=== PATIENT | male | born 1980 | race Caucasian/White ===

== ENCOUNTER 2022-07-01 19:16 | Inpatient (IN) | payer SELFPAY ==
[2022-07-01] VITALS (9 sets, daily range): BP systolic 155–166; BP diastolic 106–119; PULSE 62–88; RESP 16–22; TEMP 36.6–36.7; O2SAT 94–100; BMI 28.9
[2022-07-01] MEDS: fentaNYL 50 mcg/mL INJ 2mL IVP (19:42)
[2022-07-01] MEDS: ondansetron 2 mg/ML SDV 2 mL 4 MG IVP (19:42)
--- NOTE | 2022-07-01 19:58 | ED_ITS ---
HPI - Back Pain/Injury General: Chief Complaint: Back Pain/Injury Stated Complaint: Lower Back Pain\Fever Time Seen by Provider: 07/01/22 19:40 Source: patient Mode of arrival: ambulatory Limitations: no limitations History of Present Illness: 41-year-old male states been having right flank pain started this afternoon is gotten much worse suddenly states it radiates into his groin. He states the pain is currently a 9 out of 10 he has had some nausea denies any vomiting he denies any worsening proving factors no history of abdominal surgeries or kidney stone. Associated symptoms: Deny abdominal pain, chills, dysuria, fever(s), nausea or vomiting Review of Systems Const: Denies: fever(s), chills, body aches or change in appetite Eyes: Denies: blurry vision or eye discomfort ENMT: Denies: throat pain or dental pain Card: Denies: chest pain Resp: Denies: dyspnea GI: Denies: abdominal pain, nausea, vomiting or diarrhea : Denies: dysuria Musc: Denies: neck pain or back pain Skin/Breast: Denies: rash Neuro: Denies: headache(s) Psych: Denies: depression Santo/Lymph: Denies: easy bruising All/Imm: Denies: urticaria PFSH ED PFSH: Medical History (Updated 07/01/22 @ 22:41 by Nadiya Encarnacion MD) No pertinent past medical history Social History Substance/Drug Use: never Physical Exam Const: COMMON NORMALS: no acute distress, patient oriented x3 and healthy appearing HENMT: COMMON NORMALS: normocephalic and atraumatic HEAD & SCALP: normocephalic and atraumatic Eye: COMMON NORMALS: Equal, round and reactive pupils present and EOMs intact bilaterally PUPIL: Yes Equal, round and reactive pupils present Neck/C-Spine: COMMON NORMALS: full ROM and supple Chest: COMMONS NORMALS: normal inspection of the chest and normal palpation of entire chest wall Resp: COMMON NORMALS: normal respiratory effort, No retractions, No use of accessory muscles and clear to auscultation bilaterally AUSCULTATION: clear to auscultation bilaterally Cardio: COMMON NORMALS: regular rate, regular rhythm and No murmurs present (Cardio) RATE: regular rate RHYTHM: regular rhythm GI: COMMON NORMALS: Normal to inspection, nondistended, normoactive bowel sounds present, Soft to palpation, non-tender and no masses PALPATION: Yes Soft to palpation Extremity: COMMON NORMALS: normal to inspection and full ROM Neuro: COMMON NORMALS: patient oriented x3, moves all extremities and no focal motor deficits Psych: COMMON NORMALS: mental status grossly normal, Normal thought process present and cooperative THOUGHT PROCESS: Normal thought process present Skin: COMMON NORMALS: no rashes or lesions noted and no wounds GENERAL SKIN EXAM: no rashes or lesions noted Course Vital Signs: Vital signs: Vital Signs Temperature 98.0 F 07/01/22 19:20 Pulse Rate 70 07/01/22 21:46 Respiratory Rate 16 07/01/22 21:49 Blood Pressure 155/106 07/01/22 21:46 Pulse Oximetry 94 07/01/22 21:46 Oxygen Delivery Me thod 07/01/22 21:46 MDM - Back Pain/Injury Medical Decision Making Patient presents here with abdominal pain CT shows pancreatitis his lipase is elevated spoke to hospitalist Dr. Robb and will admit at this time. Labs : 07/01/22 21:44 07/01/22 21:44 Radiology Impressions Abdomen/Pelvis CT 07/01/22 20:54 IMPRESSION: 1. Inflammation of the duodenum and pancreatic head. This could represent acute pancreatitis and/or infectious versus inflammatory duodenitis. Peptic ulcer disease is not excluded. Clinical correlation recommended. 2. Fatty liver. Laboratory Results WBC 6.9 10^3/uL (4.0-10.0) 07/01/22 21:44 RBC 4.67 10^6/uL (4.1-5.3) 07/01/22 21:44 Hgb 15.7 g/dL (11.7-16.6) 07/01/22 21:44 Hct 44.3 % (42.0-52.0) 07/01/22 21:44 MCV 94.9 fl (80-94) H 07/01/22 21:44 MCH 33.6 pg (28.0-34.0) 07/01/22 21:44 MCHC 35.4 g/dL (30.0-36.0) 07/01/22 21:44 RDW 11.3 % (12.1-15.1) L 07/01/22 21:44 Plt Count 195 10^3/cmm (130-400) 07/01/22 21:44 MPV 9.6 fL (7.4-10.4) 07/01/22 21:44 Neut % (Auto) 65.6 % 07/01/22 21:44 Lymph % (Auto) 25.3 % 07/01/22 21:44 [place] % (Auto) 7.7 % 07/01/22 21:44 Eos % (Auto) 0.4 % 07/01/22 21:44 Baso % (Auto) 0.6 % 07/01/22 21:44 Neut # (Auto) 4.51 10^3/uL (1.8-7.7) 07/01/22 21:44 Lymph # (Auto) 1.7 10^3/uL (0.8-4.8) 07/01/22 21:44 [place] # (Auto) 0.5 10^3/uL (0.2-0.9) 07/01/22 21:44 Eos # (Auto) 0.0 10^3/uL (0.0-0.8) 07/01/22 21:44 Baso # (Auto) 0.0 10^3/uL (0.0-0.1) 07/01/22 21:44 Nucleated RBC % (auto) 0 % 07/01/22 21:44 Nucleated RBCs # 0.0 /100WBC 07/01/22 21:44 Sodium 132 mmol/L (136-145) L 07/01/22 21:44 Potassium 3.7 mmol/L (3.5-5.1) 07/01/22 21:44 Chloride 95 mmol/L (98-107) L 07/01/22 21:44 Carbon Dioxide 22 mmol/L (22-29) 07/01/22 21:44 Anion Gap 18.7 (5-19) 07/01/22 21:44 BUN 8 mg/dL (6-20) 07/01/22 21:44 Creatinine 0.7 mg/dL (0.7-1.2) 07/01/22 21:44 GFR Calculation 125.5 mL/min (90-130) 07/01/22 21:44 Glucose 104 mg/dL (65-115) 07/01/22 21:44 Calculated Osmolality 273 mOsm/kg (285-295) L 07/01/22 21:44 Calcium 9.5 mg/dL (8.5-10.5) 07/01/22 21:44 Total Bilirubin 0.8 mg/dL (0.15-1.2) 07/01/22 21:44 AST 60 U/L (0-40) H 07/01/22 21:44 ALT 69 U/L (0-41) H 07/01/22 21:44 Alkaline Phosphatase 84 U/L (40-130) 07/01/22 21:44 Total Protein 7.0 g/dL (6.6-8.7) 07/01/22:44 Albumin 4.3 g/dL (3.5-5.2) 07/01/22 21:44 Globulin 2.7 g/dL (1.3-4.6) 07/01/22 21:44 Lipase 441 U/L (13-60) H 07/01/22 21:44 Urine Color Yellow (Yellow) 07/01/22 20:05 Urine Appearance Clear (CLEAR) 07/01/22 20:05 Urine pH 8 (5-7) H 07/01/22 20:05 Ur Specific [place] 1.015 (1.005-1.030) 07/01/22 20:05 Urine Protein Neg (Negative) 07/01/22 20:05 Urine Glucose (UA) Norm (Normal) 07/01/22 20:05 Urine Ketones 1+ (Negative) H 07/01/22 20:05 Urine Blood Neg (Negative) 07/01/22 20:05 Urine Nitrate Negative (Negative) 07/01/22 20:05 Urine Bilirubin Neg (Negative) 07/01/22 20:05 Prot Sulfosalicylic Acd Negative (Negative) 07/01/22 20:05 Urine Urobilinogen Norm mg/dL (Negative) 07/01/22 20:05 Ur Leukocyte Esterase Negative (Negative) 07/01/22 20:05 Discharge Plan Discharge Patient Disposition: Admitted As Inpatient Clinical Impression: Acute pancreatitis Coding Level of Care Code ED Home Office Representative for Chg Fwd Exam Comprehensive
--- NOTE | 2022-07-01 20:44 | PC.NURSE ---
DONALD Stevens pulled 1mg Dilaudid per order from pyxis. Order was for 0.5mg IVP. 0.5 mg Dilaudid waisted by DONALD Stevens with this RN as witness. Unable to waste in pyxis secondary to downtime.
--- NOTE | 2022-07-01 20:46 | PC.NURSE ---
Secondary to downtime, 0.5mg IV dilaudid given IV push, per MD order. Verified with DONALD Stevens. Also verified that pt is not allergic to any med. SHANNON Jaramillo verified as well.
--- NOTE | 2022-07-01 20:54 | CTR_ITS ---
PROCEDURE INFORMATION: Exam: CT Abdomen And Pelvis Without Contrast Exam date and time: 07/01/2022 8:48 PM Age: 41 years old Clinical indication: Abdominal pain; Localized; Right; Patient HX: RT flank and back pain. ; Additional info: Abd pain TECHNIQUE: Imaging protocol: Computed tomography of the abdomen and pelvis without contrast. Radiation optimization: All CT scans at this facility use at least one of these dose optimization techniques: automated exposure control; mA and/or kV adjustment per patient size (includes targeted exams where dose is matched to clinical indication); or iterative reconstruction. COMPARISON: No relevant prior studies available. RADIATION DOSE METRICS: Total DLP (mGy-cm): 701.29 FINDINGS: Liver: Hepatomegaly with diffuse fatty infiltration. Gallbladder and bile ducts: Partially contracted gallbladder with possible sludge. The bile ducts are normal. Pancreas: Mild fullness of the pancreatic head with mild adjacent fat stranding. The body and tail are normal. Spleen: Normal. No splenomegaly. Adrenal glands: Normal. No mass. Kidneys and ureters: Normal. No hydronephrosis. Stomach and bowel: The stomach is unremarkable. Mild wall thickening in the 1st through 4th portions of the duodenum with adjacent fat stranding. Appendix: The appendix is visualized and is normal. Intraperitoneal space: Trace amount fluid in Espinoza's space. No free peritoneal air. Vasculature: Unremarkable. No abdominal aortic aneurysm. Lymph nodes: Unremarkable. No enlarged lymph nodes. Urinary bladder: Unremarkable as visualized. Reproductive: Unremarkable as visualized. Bones/joints: Chronic bilateral L5 pars fractures with grade 1 anterolisthesis. No acute fracture. Soft tissues: Fat containing right inguinal hernia. Tiny fat containing umbilical hernia. CT/CT kidney stone [id number] IMPRESSION: 1. Inflammation of the duodenum and pancreatic head. This could represent acute pancreatitis and/or infectious versus inflammatory duodenitis. Peptic ulcer disease is not excluded. Clinical correlation recommended. 2. Fatty liver.
[2022-07-01] MEDS: HYDROmorphone 1 mg/mL INJ 1 mL 0.5 MG IVP (21:37)
[2022-07-01 21:47] LABS: Add Urine Microscopic? NO; Charge for UA Resulting for Rev
[2022-07-01] MEDS: HYDROmorphone 1 mg/mL INJ 1 mL IVP (21:49)
[2022-07-01 21:50] LABS: Basophils % 0.6 %; Eosinophils % 0.4 %; Hematocrit 44.3 % (42.0-52.0); Hemoglobin 15.7 g/dL (11.7-16.6); Lymphocytes # 1.7 10^3/uL (0.8-4.8); Lymphocytes % 25.3 %; Mean Corpuscular HGB Conc 35.4 g/dL (30.0-36.0); Mean Corpuscular Hemoglobin 33.6 pg (28.0-34.0); Mean Corpuscular Volume 94.9 fl (80-94); Mean Platelet Volume 9.6 fL (7.4-10.4); Monocytes # 0.5 10^3/uL (0.2-0.9); Monocytes % 7.7 %; Neutrophils # 4.51 10^3/uL (1.8-7.7); Neutrophils % 65.6 %; Nucleated Red Blood Cells % 0 %; Platelet Count 195 10^3/cmm (130-400); Red Blood Count 4.67 10^6/uL (4.1-5.3); Red Cell Distribution Width 11.3 % (12.1-15.1); White Blood Count 6.9 10^3/uL (4.0-10.0)
[2022-07-01 21:55] LABS: Blood Urine Neg (Negative); Glucose Urine UA Norm (Normal); Ketones Urine 1+ (Negative); Protein Urine Neg (Negative); Specific Gravity, Urine 1.015 (1.005-1.030); Urine Appearance Clear (CLEAR); Urine Color Yellow (Yellow); pH Urine 8 (5-7)
[2022-07-01 21:56] LABS: Bilirubin Urine Neg (Negative); Leukocyte Esterase Urine Negative (Negative); Nitrate Urine Negative (Negative); Sulfosalicylic Acid Urine Negative (Negative); Urobilinogen Urine Norm (Negative)
[2022-07-01 22:12] LABS: Alanine Aminotransferase 69 U/L (0-41); Albumin Level 4.3 g/dL (3.5-5.2); Alkaline Phosphatase 84 U/L (40-130); Aspartate Amino Transferase 60 U/L (0-40); Blood Urea Nitrogen 8 mg/dL (6-20); Calcium 9.5 mg/dL (8.5-10.5); Carbon Dioxide 22 mmol/L (22-29); Chloride 95 mmol/L (98-107); Globulin 2.7 g/dL (1.3-4.6); Glomerular Filtration Rate 125.5 mL/min (90-130); Glucose 104 mg/dL (65-115); Osmolality Calculated 273 mOsm/kg (285-295); Sodium 132 mmol/L (136-145); Total Bilirubin 0.8 mg/dL (0.15-1.2)
[2022-07-01 22:21] LABS: Lipase 441 U/L (13-60)
[2022-07-01 22:23] LABS: Anion Gap 18.7 (5-19); Potassium 3.7 mmol/L (3.5-5.1)
[2022-07-01] MEDS: sodium chloride 0.9% 1,000 ML 999 ML IV (22:41)
--- NOTE | 2022-07-01 23:35 | P.HP_ITS ---
Providers/Chief Complaint Admitting Physician: Lashae Robb MD Chief Complaint: Lower Back Pain\Fever History of Present Illness Adráin Morocho is a 41 year old male presenting to the emergency room for complaints of abdominal pain, nausea and vomiting that started suddenly this afternoon. States that the pain is radiating down to the right side of his abdomen. Denies any changes in bowel habits. Denies any melena or GI bleeding. CT abdomen revealed acute pancreatitis. Elevated lipase. No recent history of binge alcohol drinking. Review of Systems General: Reports: 10 or more systems reviewed and unremarkable except in HPI and below Const: Denies: fever(s), chills or body aches Eyes: Denies: change in vision, blurry vision or photophobia ENMT: Reports: hoarseness; Denies: throat pain, enlarged tonsils, odynophagia or nasal congestion Card: Denies: chest pain, palpitations, irregular heart rhythm, edema, swelling of feet/ankles, lightheadedness, pre-syncope, dyspnea on exertion or orthopnea Resp: Denies: dyspnea, productive cough, non-productive cough, wheezing, stridor, pain on inspiration, change in phlegm color, hemoptysis or chest congestion GI: Denies: abdominal pain, nausea, vomiting, hematemesis, coffee ground emesis, dysphagia, heartburn, diarrhea, constipation, GI cramping, change in stool character, hematochezia or melena : Denies: flank pain, dysuria, urinary frequency, urinary urgency, urinary hesitancy or hematuria Musc: Denies: neck pain, back pain, extremity pain, joint swelling, joint warmth or deformity Neuro: Denies: headache(s), numbness in extremities, weakness in extremities, sensory changes, difficulty walking, frequent falls, dizziness, vertigo, behavioral changes, Slurred speech present or seizure-like activity Psych: Denies: anxiety, depression, suicidal ideation or homicidal ideation Endo: Denies: polyuria, polydipsia, tired all the time, cold intolerance or hot flashes Santo/Lymph: Denies: easy bruising or easy bleeding Medications/Allergies Home Medications Medication Instructions Recorded Confirmed Last Taken Type No Known Home Medications 07/01/22 07/01/22 Unknown History Allergies Allergy/AdvReac Type Severity Reaction Status Date / Time No Known Allergies Allergy Verified 07/01/22 23:16 PFSH Acute PFSH: Medical History No pertinent past medical history Social History Substance/Drug Use: never Vitals/I&O/Wt Last Vital Signs Temp 98 F 07/01/22 23:17 Pulse 70 07/01/22 23:17 Resp 16 07/01/22 23:17 BP 166/114 07/01/22 23:17 Pulse Ox 98 07/01/22 23:17 O2 Del Method 07/01/22 23:17 Weight last 48 hrs Weight 88.904 kg Physical Exam Narrative: General: No acute distress, AO x3 HEENT: PERRLA, pupils bilaterally equal and reactive, pallors not present Chest: Normal vesicular breath sounds, no added sounds, equal good air entry bilaterally CVS: S1-S2 regular, no murmurs, no tachycardia, no gallops, no rubs Abdomen: Soft, nontender, no organomegaly, bowel sounds present Neuro: No focal deficits, no facial deformity, AO x3, power 5/5 in all limbs Data : 07/02/22 04:05 07/02/22 04:05 A&P Assessment and plan (1) Acute pancreatitis: Admit to [facility] Overall impression that of acute pancreatitis. CT of the abdomen without any signs of necrotizing pancreatitis or pancreatic abscess. Noted mildly elevated AST and ALT without any elevated alkaline phosphatase. CT shows hepatomegaly with diffuse fatty infiltration, partially contracted gallbladder with possible sludge, normal bile ducts. Check triglyceride level. IV fluid D5 normal saline at 125 cc an hour. N.p.o. As needed morphine alternating with Toradol for pain management. As needed Zofran for symptomatic control of nausea. Monitor for clinical recovery with above interventions. Trend LFT Attestations Medical Necessity Statement*: Anticipate greater than 2 midnight admission for the management of acute pancreatitis. Coding Level of Care Code Acute Radiology Interventional Physician for Juan Luis Yancey Diagnoses Acute pancreatitis K85.90
[2022-07-01] MEDS: morphine 4 mg/mL SDV 1 mL 2 MG IVP (23:39)
[2022-07-01] MEDS: pantoprazole 40 mg SDV IVP (23:40)
[2022-07-01] MEDS: dextrose 5%-sod chloride 0.9% 1,000 ML 125 ML IV (23:40)
[2022-07-02] VITALS (7 sets, daily range): BP systolic 148–165; BP diastolic 99–111; PULSE 63–78; RESP 16–18; TEMP 36.7–36.8; O2SAT 94–98
[2022-07-02 00:14] LABS: Alcohol Level 10 mg/dL (0-10)
[2022-07-02 05:18] LABS: Basophils % 0.5 %; Eosinophils # 0.1 10^3/uL (0.0-0.8); Eosinophils % 0.8 %; Hematocrit 43.3 % (42.0-52.0); Hemoglobin 15.2 g/dL (11.7-16.6); Lymphocytes # 1.6 10^3/uL (0.8-4.8); Lymphocytes % 26.3 %; Mean Corpuscular HGB Conc 35.1 g/dL (30.0-36.0); Mean Corpuscular Hemoglobin 33.6 pg (28.0-34.0); Mean Corpuscular Volume 95.8 fl (80-94); Mean Platelet Volume 10.4 fL (7.4-10.4); Monocytes # 0.6 10^3/uL (0.2-0.9); Monocytes % 10.3 %; Neutrophils % 61.8 %; Nucleated Red Blood Cells % 0 %; Platelet Count 184 10^3/cmm (130-400); Red Blood Count 4.52 10^6/uL (4.1-5.3); Red Cell Distribution Width 11.3 % (12.1-15.1)
[2022-07-02 05:38] LABS: Alanine Aminotransferase 57 U/L (0-41); Alkaline Phosphatase 82 U/L (40-130); Anion Gap 14.7 (5-19); Aspartate Amino Transferase 43 U/L (0-40); Blood Urea Nitrogen 7 mg/dL (6-20); Calcium 9.2 mg/dL (8.5-10.5); Carbon Dioxide 25 mmol/L (22-29); Chloride 100 mmol/L (98-107); Globulin 2.6 g/dL (1.3-4.6); Glomerular Filtration Rate 107.6 mL/min (90-130); Glucose 119 mg/dL (65-115); Magnesium 1.9 mg/dL (1.7-2.3); Osmolality Calculated 281 mOsm/kg (285-295); Potassium 3.7 mmol/L (3.5-5.1); Sodium 136 mmol/L (136-145); Total Protein 6.6 g/dL (6.6-8.7)
[2022-07-02 07:15] LABS: Triglycerides 88 mg/dL (0-150)
[2022-07-02] MEDS: dextrose 5%-sod chloride 0.9% 1,000 ML 125 ML IV (08:15)
--- NOTE | 2022-07-02 09:49 | PM.DCS ---
Discharge Providers Date of Admission: 07/01/22 23:00 Date of Discharge: July 02, 2022 Attending Provider at Admission: Lashae Robb MD Attending Provider at Discharge: Fide Bahena MD Diagnoses at Discharge Discharge Diagnosis (1) Acute pancreatitis: Status: Acute Reason for Visit Reason for Visit: Lower Back Pain\Fever Hospital Course Hospital Course 41 male who drinks alcohol on occasional basis, drinks 2-3 beers a day occasionally, active smoker, present to the hospital for chief complaint of right flank pain radiating towards his back, initially he thought his symptoms were related to kidney stone but in the ER he was diagnosed with pancreatitis, his lipase above 400, triglyceride 88, he is nondiabetic, patient is stating that his mother of worsening of pancreatitis with sepsis he is not sure whether pancreatitis runs in the family, this is his first episode of pancreatitis. I did residential child care counselor him that in case of recurrent pancreatitis despite cessation of alcohol including nicotine he will need work-up for autoimmune pancreatitis. I have advance his diet which she is able to tolerate, his pain is well managed, he looks hydrated, I have advance his diet. We will discharge him on opioids. Physical Exam Narrative: Abdomen is nontender Abdomen is soft Bowel sound present Hyperactive bowel sounds Awake and alert Hydrated S1, S2 Currently on room air Discharge Data Studies Completed and Pending Completed Studies During Hospitalization Category Date Time Status CT kidney stone [id number] Stat Cat Scan 07/01/22 20:54 Completed Radiology Impressions Abdomen/Pelvis CT 07/01/22 20:54 IMPRESSION: 1. Inflammation of the duodenum and pancreatic head. This could represent acute pancreatitis and/or infectious versus inflammatory duodenitis. Peptic ulcer disease is not excluded. Clinical correlation recommended. 2. Fatty liver. Laboratory Results WBC 6.0 10^3/uL (4.0-10.0) 07/02/22 04:05 RBC 4.52 10^6/uL (4.1-5.3) 07/02/22 04:05 Hgb 15.2 g/dL (11.7-16.6) 07/02/22 04:05 Hct 43.3 % (42.0-52.0) 07/02/22 04:05 MCV 95.8 fl (80-94) H 07/02/22 04:05 MCH 33.6 pg (28.0-34.0) 07/02/22 04:05 MCHC 35.1 g/dL (30.0-36.0) 07/02/22 04:05 RDW 11.3 % (12.1-15.1) L 07/02/22 04:05 Plt Count 184 10^3/cmm (130-400) 07/02/22 04:05 MPV 10.4 fL (7.4-10.4) 07/02/22 04:05 Neut % (Auto) 61.8 % 07/02/22 04:05 Lymph % (Auto) 26.3 % 07/02/22 04:05 [place] % (Auto) 10.3 % 07/02/22 04:05 Eos % (Auto) 0.8 % 07/02/22 04:05 Baso % (Auto) 0.5 % 07/02/22 04:05 Neut # (Auto) 3.70 10^3/uL (1.8-7.7) 07/02/22 04:05 Lymph # (Auto) 1.6 10^3/uL (0.8-4.8) 07/02/22 04:05 [place] # (Auto) 0.6 10^3/uL (0.2-0.9) 07/02/22 04:05 Eos # (Auto) 0.1 10^3/uL (0.0-0.8) 07/02/22 04:05 Baso # (Auto) 0.0 10^3/uL (0.0-0.1) 07/02/22 04:05 Nucleated RBC % (auto) 0 % 07/02/22 04:05 Nucleated RBCs # 0.0 /100WBC 07/02/22 04:05 Sodium 136 mmol/L (136-145) 07/02/22 04:05 Potassium 3.7 mmol/L (3.5-5.1) 07/02/22 04:05 Chloride 100 mmol/L (98-107) 07/02/22 04:05 Carbon Dioxide 25 mmol/L (22-29) 07/02/22 04:05 Anion Gap 14.7 (5-19) 07/02/22 04:05 BUN 7 mg/dL (6-20) 07/02/22 04:05 Creatinine 0.8 mg/dL (0.7-1.2) 07/02/22 04:05 GFR Calculation 107.6 mL/min (90-130) 07/02/22 04:05 Glucose 119 mg/dL (65-115) H 07/02/22 04:05 Calculated Osmolality 281 mOsm/kg (285-295) L 07/02/22 04:05 Calcium 9.2 mg/dL (8.5-10.5) 07/02/22 04:05 Magnesium 1.9 mg/dL (1.7-2.3) 07/02/22 04:05 Total Bilirubin 1.0 mg/dL (0.15-1.2) 07/02/22 04:05 AST 43 U/L (0-40) H 07/02/22 04:05 ALT 57 U/L (0-41) H 07/02/22 04:05 Alkaline Phosphatase 82 U/L (40-130) 07/02/22 04:05 Total Protein 6.6 g/dL (6.6-8.7) 07/02/22 04:05 Albumin 4.0 g/dL (3.5-5.2) 07/02/22 04:05 Globulin 2.6 g/dL (1.3-4.6) 07/02/22 04:05 Triglycerides 88 mg/dL (0-150) 07/02/22 04:05 Lipase 441 U/L (13-60) H 07/01/22 21:44 Urine Color Yellow (Yellow) 07/01/22 20:05 Urine Appearance Clear (CLEAR) 07/01/22 20:05 Urine pH 8 (5-7) H 07/01/22 20:05 Ur Specific [place] 1.015 (1.005-1.030) 07/01/22 20:05 Urine Protein Neg (Negative) 07/01/22 20:05 Urine Glucose (UA) Norm (Normal) 07/01/22 20:05 Urine Ketones 1+ (Negative) H 07/01/22 20:05 Urine Blood Neg (Negative) 07/01/22 20:05 Urine Nitrate Negative (Negative) 07/01/22 20:05 Urine Bilirubin Neg (Negative) 07/01/22 20:05 Prot Sulfosalicylic Acd Negative (Negative) 07/01/22 20:05 Urine Urobilinogen Norm mg/dL (Negative) 07/01/22 20:05 Ur Leukocyte Esterase Negative (Negative) 07/01/22 20:05 Ethyl Alcohol 10 mg/dL (0-10) 07/01/22 21:44 Vitals Last Vital Signs Temp 98.1 F 07/02/22 08:00 Pulse 78 07/02/22 08:00 Resp 16 07/02/22 08:00 BP 149/106 07/02/22 08:00 Pulse Ox 95 07/02/22 08:00 O2 Del Method 07/02/22 08:00 Discharge Plan Discharge Patient Disposition: Home Condition: Stable Prescriptions: New hydrocodone-acetaminophen 10-325 mg tablet 1 tab PO Q8H PRN (Reason: pain) Qty: 20 0RF amlodipine 10 mg tablet 10 mg PO DAILY Qty: 60 3RF ondansetron HCl 4 mg tablet 4 mg PO DAILY PRN (Reason: nausea and vomiting) 4 Days Qty: 20 0RF sennosides-docusate sodium [Senna-S] 8.6-50 mg tablet 1 tab-cap PO DAILY Qty: 14 0RF chlorthalidone 25 mg tablet 25 mg PO DAILY Qty: 60 2RF lisinopril 20 mg tablet 20 mg PO DAILY Qty: 60 2RF Discharge Orders: Discharge Order (Routine); Ordered 07/02/22 Ordered By: Fide Bahena Discharge Diet: Low Fat Discharge Activity: Increase activity as tolerated Patient Instructions: Opioid Safety Discharge Attestations Time Spent in Discharge Care*: less than 30 min Quality Metrics Clinical Quality Measures [ No reported AMI, CVA or VTE this stay] Coding Level of Care Code Acute Chg FW DC note Diagnoses Acute pancreatitis K85.90
--- NOTE | 2022-07-02 10:21 | PC.CHAP ---
Pastoral Care Encounter/Spiritual Assessment Type of Contact [] Declined embedded developer visit [] Patient/Family/Request visit [] Outpatient visit [] Follow-up visit [] Physician referral [] Code/Alert [x] Routine visit [] Staff referral [] Actively dying [] Patient sleeping [] Family support [] [] Out of room [] Palliative care [] [] Receiving care in room [] Pre-surgical visit [] Trauma [] Long length of stay [] ICU visit [] Other: Relational/Emotional Strength [] Patient feels connected with others/family/visitors/staff [] Distress [] Loneliness/isolation [] Abandonment Spirituality of Patient [x] Person of Natalia [] Attends Pentecostalism of their Natalia [x] Believes in Prayer [] Reads Bible or Denominational materials [] There are Spiritual issues to be addressed Stock Dealer Interventions [x] Prayer [] Active listening [] Non-anxious presence [] Spiritual/emotional support [] Crisis/trauma care [] Spiritual counseling [] Bereavement support [] Provided bereavement packet [] Provided Bible/devotional materials [] Provided toy/stuffed animal, coloring book to patient or family member [] Provided Communion [] Anointing/[place] [] Salvation [x] Completed spiritual assessment [] Other: Impact on Illness or Injury [] Angry [] Fearful [] Anxious [] Often cries [] Exhaustion [] Unable to work [] Unable to attend latter-day [] Unable to walk/stand [] Unable to read [] Unable to drive [] Unable to eat/drink [] Unable to sleep [] Unable to be with family [] Patient intubated [] Other: Summary Time spent with patient 10 min
[2022-07-02] MEDS: hyDRALAzine 20 mg/mL INJ 1 mL 10 MG IVP (13:33)
[2022-07-02] MEDS: lisinopril 20 mg Tablet PO (13:33)
--- NOTE | 2022-07-02 17:28 | PC.NURSE ---
Discharge Note Patient discharged to home via private vehicle accompanied by . Discharge instructions reviewed with patient and/or sales representative metals. Mobile pharmacy medications and/or prescriptions provided. Belongings/home medications returned.
== END 2022-07-02 16:40 | disposition home or self-care (01) | DRG 440 ==
LOC: ER 22:41 → MEDSURG 23:00
PROVIDERS: Admitting Provider Student in an Organized Health Care Education/Training Program; Emergency Provider Emergency Medicine; Visit Provider Internal Medicine
DX: K85.90 Acute pancreatitis without necrosis or infection, unspecified (principal); K76.0 Fatty (change of) liver, not elsewhere classified; F10.90 Alcohol use, unspecified, uncomplicated; F17.200 Nicotine dependence, unspecified, uncomplicated; Y90.0 Blood alcohol level of less than 20 mg/100 ml; Z83.79 Family history of other diseases of the digestive system
CPT/HCPCS: 74176; 80053; 80307; 81003; 83690; 83735; 84478; 85025; 96374; 96375; 96376; 99285; C9113; J0360; J1170; J2270; J2405; J3010; J7030

== ENCOUNTER → 2022-08-26 08:35 | Outpatient (BNVA) | payer SELFPAY | PROVIDERS: PCP Registered Nurse; Visit Provider Dermatology | DX: Z01.89 Encounter for other specified special examinations (principal) ==

== ENCOUNTER → 2023-02-24 09:44 | Outpatient (BNVA) | payer SELFPAY | PROVIDERS: PCP Registered Nurse; Visit Provider Dermatology | DX: Z01.89 Encounter for other specified special examinations (principal) ==

== ENCOUNTER 2025-03-09 08:02 | Outpatient (CLI) | payer SELFPAY ==
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
== END 2025-03-09 08:03 | disposition home or self-care (01) ==
LOC: RAD 08:06
PROVIDERS: PCP Family Medicine; Visit Provider Surgery
DX: R10.13 Epigastric pain (principal); R11.2 Nausea with vomiting, unspecified; R14.0 Abdominal distension (gaseous)
CPT/HCPCS: 78227; A9537

== ENCOUNTER 2025-07-20 22:26 | Emergency (ER) | payer SELFPAY ==
[2025-07-20 22:28] VITALS: BP 128/90; PULSE 104; RESP 16; TEMP 37.1; O2SAT 97; BMI 18.4
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
[2025-07-20 22:56] VITALS: BP 139/105; PULSE 94; RESP 14; O2SAT 92
[2025-07-20 23:03] LABS: Hematocrit 41.5 % (37-53); Hemoglobin 15.00 g/dL (11.27-16.99); Mean Corpuscular HGB Conc 36.1 g/dL (30-55); Mean Corpuscular Hemoglobin 36.2 pg (27-33); Mean Corpuscular Volume 100.2 fl (82-101); Nucleated Red Blood Cells % 0 %; Platelet Count 67 10^3/cmm (157-399); Red Blood Count 4.14 10^6/uL (3.85-5.65); White Blood Count 4.58 10^3/uL (3.29-11.43)
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
[2025-07-20 23:19] LABS: Alanine Aminotransferase 341 U/L (0-41); Albumin Level 4.3 g/dL (3.5-5.2); Alkaline Phosphatase 142 U/L (40-130); Anion Gap 22.3 (5-19); Blood Urea Nitrogen 7 mg/dL (6-20); Calcium 8.8 mg/dL (8.5-10.5); Carbon Dioxide 26 mmol/L (22-29); Chloride 97 mmol/L (98-107); Creatinine Clr Calc Pharmacy 128.6227; Globulin 2.4 g/dL (1.3-4.6); Glucose 126 mg/dL (65-115); Lipase 181 U/L (13-60); Osmolality Calculated 294 mOsm/kg (285-295); Potassium 3.3 mmol/L (3.5-5.1); Sodium 142 mmol/L (136-145); Total Protein 6.7 g/dL (6.6-8.7)
[2025-07-20] MEDS: iohexol 350 mg/mL 500 mL Btl (per mL) IV (23:40)
[2025-07-20 23:45] LABS: Aspartate Amino Transferase 1474 U/L (0-40)
[2025-07-20 23:55] VITALS: BP 138/101; PULSE 97; RESP 20; O2SAT 94
[2025-07-21 00:04] LABS: Glucose Urine UA Negative (Normal); Nitrate Urine Negative (Negative)
[2025-07-21 00:07] LABS: Specific Gravity, Urine 1.044 (1.005-1.030)
[2025-07-21 00:09] LABS: Add Urine Microscopic? YES
[2025-07-21 00:11] LABS: PCP Screen Urine Negative (Negative)
[2025-07-21 00:15] LABS: Alcohol Level 376 mg/dL (0-10)
[2025-07-21 01:43] VITALS: BP 135/98; PULSE 97; RESP 14; O2SAT 96
== END 2025-07-21 01:45 | disposition short-term general hospital (02) ==
PROVIDERS: Emergency Provider Emergency Medicine; PCP Family Medicine
DX: S06.34AA Traumatic hemorrhage of right cerebrum with loss of consciousness status unknown, initial encounter (principal); S43.101A Unspecified dislocation of right acromioclavicular joint, initial encounter; K86.9 Disease of pancreas, unspecified; S40.211A Abrasion of right shoulder, initial encounter; V86.99XA Unspecified occupant of other special all-terrain or other off-road motor vehicle injured in nontraffic accident, initial encounter
CPT/HCPCS: 36415; 70450; 70496; 70498; 71045; 71260; 72125; 73030; 74177; 80053; 80306; 80307; 81001; 83690; 85025; 86850; 86900; 87086; 99285

== ENCOUNTER 2025-08-16 14:29 | Outpatient (CLI) | payer SELFPAY ==
--- NOTE | 2025-08-16 14:43 | CT_ITS ---
WS: [id number] CT HEAD NONCONTRAST HISTORY: INTRACRANIAL HEMORRHAGE TECHNIQUE: Contiguous axial imaging performed through the brain. Bone and soft tissue windows. Sagittal and coronal reformats reviewed. All CT scans at [facility] use at least one of these dose optimization techniques: automated exposure control; mA and/or kV adjustment per patient size (includes targeted exams where dose is matched to clinical indication); or iterative reconstruction. DLP: 990.95 mGy.cm COMPARISON: 07/20/2025 Previously described intracranial hemorrhage has resolved. Parenchymal hemorrhage along the RIGHT frontal interhemispheric falx has resolved. This was a very small hemorrhage. No acute blood products or intraventricular. No layering blood products and no obstruction of the ventricles. Third ventricle a nd fourth ventricles are normal. Mild frontal lobe atrophy. No infarct. Ventricles: Normal size with no hydrocephalus. Paranasal sinuses: No pneumatization of the RIGHT frontal sinus. No air-fluid levels in the sinuses. Mastoid air cells: Well pneumatized. Calvarium and scalp: Skull is intact with no soft tissue edema or swelling. CT/CT head wo con* [id number] IMPRESSION: 1. No residual acute intraventricular hemorrhage as compared to 07/20/2025. 2. Previously described acute RIGHT frontal lobe parenchymal hemorrhage along the interhemispheric falx has completely resolved. 3. Normal size ventricles with no obstruction. 4. No infarcts.
== END 2025-08-16 14:30 | disposition home or self-care (01) ==
LOC: RAD 14:31
PROVIDERS: PCP Family Medicine; Visit Provider Family Medicine
DX: I62.9 Nontraumatic intracranial hemorrhage, unspecified (principal)
CPT/HCPCS: 70450

== ENCOUNTER 2025-08-31 15:00 | Outpatient (CLI) | payer SELFPAY ==
--- NOTE | 2025-08-31 15:13 | MRR_ITS ---
PROCEDURE INFORMATION: Exam: MR Abdomen Without and With Contrast, Biliary System Exam date and time: 08/31/2025 3:45 PM Age: 44 years old Clinical indication: Abnormal findings; Abnormal radiologic finding of the abdomen; Radiologic exam and body structure: CT abd pelvis; Pancreatic lesion seen on CT. TECHNIQUE: Imaging protocol: MR of the abdomen without and with intravenous contrast. Exam focused on the bile ducts and pancreatic ducts. Routine 3D-MRCP images were acquired and processed without radiologist supervision. Contrast material: MULTIHANCE; Contrast volume: 19 ml; Contrast route: INTRAVENOUS (IV); COMPARISON: CT kidney stone [id number] 07/01/2022 8:48 PM FINDINGS: Liver: No mass. Gallbladder and biliary ducts: Gallbladder is not distended. No wall thickening or filling defect. No intrahepatic biliary dilatation. Relative mild narrowing of the mid CBD with mildly irregular contour (series 1100, image 25-31). Distal CBD is normal in caliber and contour, measuring 5-6 mm in diameter. Pancreas: Bilocular T2 hyperintense/complex cystic lesion (series 701, image 22) measuring 2.1 x 1 x1.1 cm , demonstrating no significant postcontrast enhancement . This is located within what appears to be possible pancreatic breast tissue interposed between the pancreatic head proper in the duodenum with diffusely low T1 and T2 signal (series 541, image 21-23, series 09/19/1999 image 27-33) suggestive of superimposed scar tissue. Intraperitoneal space: No fluid collection. MR/MR abdomen wo/w con* [id number] IMPRESSION: 1. 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 No suspicious contrast enhancement at this time. Follow-up in 3-6 months recommended to assess stability. 2. 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 3. Mild narrowing of the mid CBD likely related to the pancreatic changes .
[2025-08-31] MEDS: gadobenate dimeglumine 20 mL vial 19 ML IV (16:48)
== END 2025-08-31 15:01 | disposition home or self-care (01) ==
LOC: RAD 15:04
PROVIDERS: PCP Family Medicine; Visit Provider Family Medicine
DX: K86.89 Other specified diseases of pancreas (principal); K86.2 Cyst of pancreas
CPT/HCPCS: 74183